=== PATIENT | female | born 1975 | race Two or more races ===

== ENCOUNTER 2016-08-09 02:15 | Emergency (ER) | payer OTHER ==
[~2016-08-09] VITALS: Ht 167.6 cm; Wt 72.6 kg
[2016-08-09] MEDS ORDERED: KETOROLAC TROMETHAMINE INJ 30 MG/ML VIAL IV ONE (03:00)
[2016-08-09] MEDS ORDERED: ACETAMINOPHEN ES 500 MG TABLET PO ONE (03:00)
[2016-08-09] MEDS ORDERED: IV NS 0.9% 1,000 ML BAG IV ONE (03:00)
[2016-08-09] MEDS ORDERED: ACETAMINOPHEN ES 500 MG TABLET ONE (03:10)
[2016-08-09] MEDS ORDERED: IV NS 0.9% 1,000 ML ONE (03:10)
[2016-08-09] MEDS ORDERED: KETOROLAC TROMETHAMINE 15 MG/ML VIAL ONE (03:10)
[2016-08-09] MEDS ORDERED: IV SET PRIMARY 1 EA INFUS.SET MC ONE (03:10)
[2016-08-09 04:04] VITALS: BP 100/55
== END 2016-08-09 04:04 | disposition home or self-care (01) ==
LOC: ER 02:20
DX: J11.1 Influenza due to unidentified influenza virus with other respiratory manifestations (principal)
CPT/HCPCS: 71010-TC; A4606; J1885; J7030; Z7610